=== PATIENT | female | born 1975 | race Caucasian/White ===

== ENCOUNTER 2019-09-09 19:27 | Emergency (ER) | payer BC ==
[~2019-09-09] VITALS: Ht 172.7 cm; Wt 113.4 kg
[2019-09-09 19:35] VITALS: Ht 172.7 cm; Wt 113.4 kg
[2019-09-09 22:14] VITALS: BP 151/82
== END 2019-09-09 22:15 | disposition home or self-care (01) ==
LOC: ED 19:27
DX: L02.212 Cutaneous abscess of back [any part, except buttock and flank] (principal)
CPT/HCPCS: J2001